=== PATIENT | female | born 1965 | race Two or more races ===

== ENCOUNTER 2020-09-04 06:40 | Inpatient (IN) | payer BC ==
[~2020-09-04] VITALS: Ht 160 cm; Wt 63.5 kg
[2020-09-04] MEDS ORDERED: estrogen (07:16)
[2020-09-04 07:35] LABS: BASOPHILS # (AUTO) 0.1 K/uL (0.0-8.0); BASOPHILS % (AUTO) 1.1 % (0.0-2.0); EOSINOPHILS # (AUTO) 0.2 K/uL (0.0-0.7); EOSINOPHILS % (AUTO) 2.4 % (0.0-7.0); HEMATOCRIT 36.7 % (31.2-41.9); HEMOGLOBIN 12.3 g/dL (10.9-14.3); LYMPHOCYTES # (AUTO) 2.1 K/uL (20.0-40.0); LYMPHOCYTES % (AUTO) 31.3 % (20.5-51.5); MEAN CORPUSCULAR HEMOGLOBIN 29.5 uug (24.7-32.8); MEAN CORPUSCULAR HGB CONC 34 g/dL (32.3-35.6); MEAN CORPUSCULAR VOLUME 88.1 fL (75.5-95.3); MONOCYTES # (AUTO) 0.4 K/uL (2.0-10.0); MONOCYTES % (AUTO) 6.3 % (0.0-11.0); NEUTROPHILS # (AUTO) 3.9 K/uL (1.8-8.9); NEUTROPHILS % (AUTO) 58.9 % (38.5-71.5); PLATELET COUNT (AUTO) 323 K/uL (179-408); RED BLOOD CELL COUNT(AUTO) 4.17 MIL/uL (3.63-4.92); WHITE BLOOD COUNT (AUTO) 6.6 K/uL (3.8-11.8)
[2020-09-04 07:47] LABS: CREATININE 0.8 mg/dL (0.6-1.3); POTASSIUM 3.7 mmol/L (3.5-5.1)
[2020-09-04 08:04] LABS: BILIRUBIN,DIRECT 0.1 mg/dL (0.0-0.2); BILIRUBIN,TOTAL 0.6 mg/dL (0.2-1.0); TOTAL PROTEIN, SERUM 6.8 g/dL (6.4-8.2)
[2020-09-04] MEDS ORDERED: ASPIRIN 325 MG TABLET ONE (09:07)
[2020-09-04] MEDS ORDERED: ASPIRIN 325 MG TABLET PO ONE (09:15)
[2020-09-04 15:44] VITALS: BP 114/60
[2020-09-04] MEDS ORDERED: TEMAZEPAM 15 MG CAPSULE PO PRN (17:15)
[2020-09-04] MEDS ORDERED: ONDANSETRON 4 MG/2 ML VIAL IV PRN (17:15)
[2020-09-04] MEDS ORDERED: ACETAMINOPHEN 325 MG TABLET PO PRN (17:15)
[2020-09-04 20:00] VITALS: BP 106/55
[2020-09-04] MEDS ORDERED: DOCUSATE SODIUM 100 MG CAPSULE PO SCH (21:00)
[2020-09-05] VITALS: BP 95/53
[2020-09-05 04:00] VITALS: BP 97/49
[2020-09-05 06:11] LABS: BILIRUBIN,TOTAL 0.1 mg/dL (0.2-1.0); CREATININE 0.6 mg/dL (0.6-1.3); PHOSPHOROUS 4.1 mg/dL (2.5-4.9); POTASSIUM 3.9 mmol/L (3.5-5.1); TOTAL PROTEIN, SERUM 6.3 g/dL (6.4-8.2)
[2020-09-05 06:19] LABS: THYROID STIMULATING HORMONE 2.548 mIU/mL (0.358-3.740)
[2020-09-05] MEDS: PANTOPRAZOLE SODIUM 40 MG TABLET.DR PO SCH ×2 (06:45→06:47)
[2020-09-05] MEDS ORDERED: IOHEXOL 300MG/ML 100 ML INFUS..BTL ONE (08:27)
[2020-09-05] MEDS ORDERED: IV NORMAL SALINE 250 ML IV ONE (08:27)
[2020-09-05] MEDS ORDERED: SWABABLE VALVE TRANSFER SET EA MC ONE (08:27)
[2020-09-05 11:52] VITALS: BP 106/47
[2020-09-05 13:27] LABS: *BILIRUBIN,URIN NEGATIVE (NEGATIVE); *CLARITY,URINE CLEAR (CLEAR); *COLOR,URINE YELLOW (YELLOW); *KETONES,URINE NEGATIVE (NEGATIVE); *UROBILINOGEN,URINE 0.2 E.U./dl (NORMAL); LEUKOCYTE ESTERASE ,URINE NEGATIVE (NEGATIVE); NITRITE, URINE NEGATIVE (NEGATIVE); UGLUCOSE NEGATIVE (NEGATIVE)
[2020-09-05 13:28] LABS: *BLOOD, URINE TRACE (NEGATIVE)
[2020-09-05 16:03] LABS: RBC,URINE 0-3 /HPF (0-3); WBC,URINE 0-3 /HPF (0-3)
[2020-09-05 16:04] LABS: BACTERIA,URINE NONE SEEN /HPF (NONE SEEN); SQUAMOUS EPITHELIAL CELL,UR FEW /HPF (NONE SEEN)
== END 2020-09-05 14:45 | disposition home or self-care (01) | DRG 392 ==
LOC: ER 06:49 → TELE3 12:02 → MEDSURG3 09-05 08:18
PROVIDERS: ADMIT Internal Medicine; ATTEND Internal Medicine
DX: K21.00 Gastro-esophageal reflux disease with esophagitis, without bleeding (principal); B94.8 Sequelae of other specified infectious and parasitic diseases; R20.0 Anesthesia of skin; I67.2 Cerebral atherosclerosis; Z98.82 Breast implant status; Z91.81 History of falling; Z90.710 Acquired absence of both cervix and uterus
CPT/HCPCS: 36415; 70030-TC; 70450; 71045; 71260; 84100; 84443; 85025; 85730; 87086; 93005; 93307; 93880; A4663; G0378; J7050; Q9967